=== PATIENT | female | born 1965 | race Caucasian/White ===

== ENCOUNTER 2017-09-22 20:56 | Inpatient (IN) ==
--- NOTE | 2017-09-22 21:49 | Emergency Department Note ---
Disposition Clinical Impression: Multiple drug resistant organism (MDRO) culture positive Acute cystitis Qualifiers: Hematuria presence: without hematuria Qualified Code(s): N30.00 - Acute cystitis without hematuria Disposition: Admitted As Inpatient Condition: Good Referrals: Roxana Hernández CNP [Primary Care Provider] - Forms: ED Satisfaction Letter General Adult HPI - General Chief complaint: ED Recheck/Abnormal Lab/Rx Stated complaint: IV Antibiotics Per Phone Call Time Seen by Provider: 09/22/17 21:40 Source: patient Mode of arrival: ambulatory Limitations: no limitations Nursing Notes Reviewed: Yes Vital Signs Reviewed: Yes - History of Present Illness HPI Narrative: Patient was seen and evaluated by me 2 days ago for evaluation of abdominal pain and left flank pain. Patient symptoms that started while she was on the couch on her iPad (errors in dictation on previous report). The patient underwent a investigation which included blood work as well as a CT scan. Urine was concerning for UTI and CAT scan was concerning for cystitis area the patient was placed on antibiotics and sent home. Urine culture has now grown multiresistant organism. Patient will be placed on antibiotics and admitted to the hospital. Patient has had multiple antibiotics in the past for an ear infection. Pain Scale: 0 - Related Data Home Medications Medication Instructions Recorded Confirmed Gabapentin [Neurontin] 300 mg PO TID 01/17/15 02/19/17 Glimepiride [Amaryl] 4 mg PO DAILY 01/17/15 02/19/17 Insulin ASPART [NovoLOG] 20 unit SQ TIDWM 01/17/15 02/19/17 Lisinopril [Zestril] 10 mg PO DAILY 01/17/15 02/19/17 SUMAtriptan Succinate [Imitrex] 50 mg PO DAILY PRN 01/17/15 02/19/17 Sertraline [Zoloft] 25 mg PO DAILY 01/17/15 02/19/17 Simvastatin [Zocor] 40 mg PO HS 01/17/15 02/19/17 Previous Rx's Medication Instructions Recorded Insulin Glargine,Hum.rec.anlog 35 unit SQ BID #100 mls 01/18/15 [Lantus Solostar] Amoxicillin/Clavulanate [Augmentin] 875 mg PO BIDWM #20 tablet 02/19/17 Ciprofloxacin [Cipro] 500 mg PO BID #20 tablet 09/20/17 Allergies Allergy/AdvReac Type Severity Reaction Status Date / Time No Known Allergies Allergy Verified 09/22/17 21:00 Review of Systems: CONSTITUTIONAL: Subjective fever No weight loss,chills, weakness or fatigue. HEENT: Eyes: No visual changes. Ears, Nose, Throat: No hearing loss, difficulty talking or unable to swallow. SKIN: No rash or itching. CARDIOVASCULAR: No chest pain, chest pressure or chest discomfort. No palpitations or edema. RESPIRATORY: No shortness of breath, cough or sputum. GASTROINTESTINAL: Abdominal pain No anorexia, nausea, vomiting or diarrhea. GENITOURINARY: Frequency without dysuria or hematuria. NEUROLOGICAL: No headache, dizziness, syncope, paralysis, ataxia, numbness or tingling in the extremities. No change in bowel or bladder control. MUSCULOSKELETAL: No muscle pain, back pain, joint pain or stiffness Past Medical History - Past Medical History Medical history: Reports: diabetes, hyperlipidemia, hypertension Surgical history: Reports: cholecystectomy, sinus surgery, other (lefft ear surgery secondary to infection --left mastoid reconstruction) Psychiatric history: Reports: anxiety, depression PANEL CUTTER history: Reports: no PANEL CUTTER history - Social History Smoking Status: Never smoker Smokeless Tobacco Status: No Alcohol use: Reports: none Drug use: Reports: none Physical Exam General: Well appearing, nontoxic, no acute distress Head: Normocephalic Atraumatic Eyes: PERRL, EOMI ENT: Airway patent, no stridor; poor dentition Neck: supple, no meningismus Chest: Lungs clear to auscultation bilateral Cardiac: Regular rate and rhythm, no murmurs, rubs or gallops Abdomen: soft, tenderness to the left upper quadrant and left lower quadrant abdomen with mild left flank tenderness, nondistended; no guarding, rebound, or tenderness to percussion Skin: No rash, normal skin tone Neuro: Alert and Oriented to person, place, and time; No focal deficit Course - Reevaluation(s) Reevaluation #1: Patient with multi resistant acute cystitis. Patient placed on Zosyn which she is sensitive to. Patient will be admitted to the hospitalist service. - Consultations Consultation #1: Discussed with hospitalist. Patient accepted for admission. Vital Signs Temperature 99.3 F 09/22/17 21:00 Pulse Rate 100 07/03/18 21:00 Respiratory Rate 16 09/22/17 21:00 Blood Pressure 161/94 09/22/17 21:00 O2 Sat by Pulse Oximetry 94 09/22/17 21:00 Temperature 99.3 F 09/22/17 21:00 Pulse Rate 100 09/22/17 21:00 Respiratory Rate 16 09/22/17 21:00 Blood Pressure 161/94 09/22/17 21:00 O2 Sat by Pulse Oximetry 94 09/22/17 21:00 Oxygen Delivery Oxygen Delivery Room Air
[2017-09-22] MEDS ORDERED: Piperacillin/Tazobactam 3.375 GM in 0.9 % Sodium Chloride Mini Bag 100 ML IVPB ONE (21:58)
--- NOTE | 2017-09-23 01:31 | Internal Med History&Physical ---
Date of Encounter: 09/23/17 Time of Encounter: 01:28 Internal Medicine - H&P: HPI Chief complaint: UTI Admitted From: Home Plans for Post Hospital Care: Home History of present illness: Ms. Herring is a 52 year old female Patient with history of diabetes mellitus, hypertension, hyperlipidemia, got admitted for the treatment of multi drug resistant UTI with IV antibiotic. Patient was discharged on oral antibiotics Cipro and amoxicillin 2 days before with the concern of a TIA in The scan was concerning for cystitis after getting evaluated in the ER. Patient continued to have symptom. Patient denies fever nausea vomiting chest pain constipation diarrhea headache dizziness. She does complain of chills, dysuria, increased urinary frequency. Past Med Surg Social Fam HX - Past Medical History Medical history: diabetes, hyperlipidemia, hypertension Psychiatric history: anxiety, depression - Past Surgical History Surgical History: , cholecystectomy, sinus surgery, other Additional surgical history: EAR SURGERY, LT - Social History Smoking Status: Never smoker Smokeless Tobacco Status: No Alcohol use: none Drug use: none - Family History Mother Hx Family Cardiac Disorders: Yes ([place]) Internal Medicine - H&P: Meds Insulin ASPART [NovoLOG] 20 unit SQ TIDWM 01/17/15 [History] SUMAtriptan Succinate [Imitrex] 50 mg PO DAILY PRN 01/17/15 [History] Insulin Glargine,Hum.rec.anlog [Lantus Solostar] 35 unit SQ BID #100 mls [Rx] Gabapentin [Neurontin] 300 mg PO TID 09/22/17 [History] Glimepiride [Amaryl] 4 mg PO DAILY 09/22/17 [History] Lisinopril [Zestril] 10 mg PO DAILY 09/22/17 [History] Sertraline [Zoloft] 50 mg PO DAILY 09/22/17 [History] Simvastatin [Zocor] 40 mg PO HS 09/22/17 [History] 3 Allergy/AdvReac Type Severity Reaction Status Date / Time No Known Allergies Allergy Verified 09/22/17 21:00 All Systems PM: A 10-system review of systems was performed and is negative for pertinent findings except as documented above in the HPI. - Constitutional Vitals: Temp Pulse Resp BP Pulse Ox 98.2 F 91 17 158/85 97 09/22/17 23:53 09/22/17 23:53 09/22/17 23:53 09/22/17 23:53 09/22/17 23:53 Exam: General appearance: No acute distress, A&O X 3, obese Head exam: Atraumatic Eye exam: EOMI, PERRLA ENT exam: Moist oral mucosa Neck nontender, supple Respiratory exam: Clear to auscultation bilaterally Cardiovascular exam: Regular rate and rhythm, no systolic murmur Abdominal exam: Soft, mildly tender in left flank and abdomen, nondistended, positive bowel sounds Extremities exam: No calf tenderness, no pedal edema Present: Skin-no rash, warm, dry, intact Neurological exam: Alert, awake, oriented 3, CN II-XII intact, no focal deficits. No facial droop. Normal speech. Motor 5 x 5 in all 4 extremities, Normal gait. - Assessment and plan (1) Acute cystitis Current Visit: Yes Status: Acute Assessment and plan: With multi drug resistant organism Proteus mirabilis sensitive to ertapenem Zosyn. CT abdomen was done suggestive of acute cystitis but no obstructive uropathy. Leukocytosis. Zosyn was started in the ER. May need to consider urology consultation in the morning as per attending physician decision. Pain management by IV Tylenol . Qualifiers: Hematuria presence: without hematuria Qualified Code(s): N30.00 - Acute cystitis without hematuria (2) Diabetes mellitus Current Visit: Yes Status: Acute Assessment and plan: Accu-Chek, continue home dose long-acting insulin, sliding scale coverage, diabetic diet Qualifiers: Diabetes mellitus type: type 2 Diabetes mellitus custodial insulin use: with buttermilk drier operator use Qualified Code(s): E11.9 - Type 2 diabetes mellitus without complications; Z79.4 - intermodal owner operator truck driver (current) use of insulin (3) GERD (gastroesophageal reflux disease) Current Visit: No Status: Acute Assessment and plan: Continue PPI Qualifiers: Esophagitis presence: esophagitis presence not specified Qualified Code(s) : K21.9 - Gastro-esophageal reflux disease without esophagitis (4) HLD (hyperlipidemia) Current Visit: No Status: Acute Assessment and plan: Continue home medicine Qualifiers: Hyperlipidemia type: unspecified Qualified Code(s): E78.5 - Hyperlipidemia , unspecified (5) HTN (hypertension) Current Visit: No Status: Acute Assessment and plan: Slight elevated could be due to pain. Pain control. Continue lisinopril hydralazine when necessary Qualifiers: Hypertension type: essential hypertension Qualified Code(s): I10 - Essential (primary) hypertension (6) DVT prophylaxis Current Visit: Yes Status: Acute Assessment and plan: SCDs - Time Spent With Patient Total time spent is greater than 50% in coordination of care (as documented) at patient's floor/unit and/or counseling patient: 25 - 35 minutes
[2017-09-23] MEDS ORDERED: Naloxone 0.4 MG/ML INJ IVP PRN (01:37)
[2017-09-23] MEDS ORDERED: SUMAtriptan succinate 50 MG TABLET PO PRN (01:39)
[2017-09-23] MEDS ORDERED: D5% in Water 1,000 ML IVC PRN (01:40)
[2017-09-23] MEDS ORDERED: Dextrose Gel 15 GM/37.5 ML TUBE PO PRN ×2 (01:40)
[2017-09-23] MEDS ORDERED: *HR* Dextrose 50 % in Water (Syg) 50 ML SYRINGE IVP PRN (01:40)
[2017-09-23] MEDS ORDERED: Ondansetron 4 MG/2 ML VIAL IVP PRN (01:45)
[2017-09-23 02:07] LABS: Basophils # 0.1 K/mcL (0.0-0.2); Basophils % 0.6 %; Eosinophils # 0.2 K/mcL (0.0-0.6); Eosinophils % 1.7 %; Hematocrit 42.6 % (35.3-44.9); Hemoglobin 13.8 g/dL (11.5-15.4); Immature Granulocytes % 0.6 % (0-4); Lymphocytes # 3.3 K/mcL (0.6-4.6); Lymphocytes % 26.2 %; Mean Corpuscular HGB Conc 32.4 g/dL (31.6-35.5); Mean Corpuscular Hemoglobin 27.6 pg (28.0-33.3); Mean Corpuscular Volume 85.2 fL (83.0-100.0); Mean Platelet Volume 9.6 fL (9.4-12.4); Monocytes # 0.7 K/mcL (0.0-1.3); Monocytes % 5.3 %; Neutrophils # 8.3 K/mcL (1.6-8.9); Platelet Count 438 K/mcL (140-400); Red Cell Distribution Width 14.6 % (11.5-14.5); Segmented Neutrophils % 65.6 %
[2017-09-23] MEDS: 0.9 % Sodium Chloride 1,000 ML IVC SCH ×2 (02:22→14:36)
[2017-09-23 02:31] LABS: BUN/Creatinine Ratio 13 (6-26); Blood Urea Nitrogen 12 mg/dL (6-20); Calcium 9.5 mg/dL (8.6-10.3); Carbon Dioxide 27 mEq/L (23-29); Chloride 97 mEq/L (98-107); Glucose 321 mg/dL (70-105); Osmolality,Calculated 290 (280-300); Potassium 4.2 mEq/L (3.5-5.1); Sodium 134 mEq/L (136-145); eGFR For African Americans > 60 (> 60); eGFR For Non-African Americans > 60 (> 60)
[2017-09-23 02:44] LABS: Amylase 10 Units/L (29-103); Lipase 10 Units/L (11-82)
[2017-09-23] MEDS: Acetaminophen IV 1,000 MG/100 ML INFUS..BTL IVPB SCH ×3 (05:00→18:36)
[2017-09-23] MEDS: Pantoprazole 40 MG VIAL IVP SCH (05:00)
[2017-09-23] MEDS ORDERED: Insulin LISPRO 300 UNITS/3 ML VIAL SQ SCH (08:00)
[2017-09-23] MEDS: Gabapentin 300 MG CAPSULE PO SCH ×3 (08:18→21:11)
[2017-09-23] MEDS: Piperacillin/Tazobactam 3.375 GM in 0.9 % Sodium Chloride Mini Bag 100 ML IVPB SCH ×2 (08:22→18:38)
[2017-09-23] MEDS: Insulin LISPRO 300 UNITS/3 ML VIAL SQ SCH ×3 (08:22→18:37)
[2017-09-23 08:24] LABS: Estimated Average Glucose 212 mg/dl
[2017-09-23] MEDS: Insulin DETEMIR 100 UNIT/ML X5UNITS SQ SCH ×2 (09:14→21:21)
[2017-09-24] MEDS: Piperacillin/Tazobactam 3.375 GM in 0.9 % Sodium Chloride Mini Bag 100 ML IVPB SCH ×3 (00:35→15:05)
[2017-09-24] MEDS: Acetaminophen IV 1,000 MG/100 ML INFUS..BTL IVPB SCH ×3 (01:12→11:55)
[2017-09-24] MEDS: 0.9 % Sodium Chloride 1,000 ML IVC SCH ×2 (04:17→15:30)
[2017-09-24] MEDS: Pantoprazole 40 MG VIAL IVP SCH (05:56)
[2017-09-24] MEDS: Insulin LISPRO 300 UNITS/3 ML VIAL SQ SCH ×3 (07:49→17:24)
[2017-09-24] MEDS: Insulin DETEMIR 100 UNIT/ML X5UNITS SQ SCH ×2 (08:34→21:52)
[2017-09-24] MEDS: Gabapentin 300 MG CAPSULE PO SCH ×3 (08:35→21:52)
[2017-09-24] MEDS ORDERED: Acetaminophen 325 MG TABLET PO PRN (13:32)
--- NOTE | 2017-09-24 15:10 | Infectious Disease Consult ---
Date of Encounter: 09/24/17 Time of Encounter: 15:08 Assessment and Plan (1) Acute cystitis Status: Acute Assessment and plan: Cystitis secondary to multi drug resistant Proteus mirabilis sensitive to ertapenem, tobramycin, Zosyn - Abdomen and pelvis CT performed on 09/20 demonstrated urinary or wall thickening with paravesical fat stranding suggesting cystitis - No obstructive uropathy - Zosyn was started in the ER - Recommend fosfomycin 1 packet q48 hours x 3 Qualifiers: Hematuria presence: without hematuria Qualified Code(s): N30.00 - Acute cystitis without hematuria (2) Diabetes mellitus Status: Acute Assessment and plan: Hemoglobin A1c is 9.0 - presented with an elevated glucose at 321 - Per primary team; Accu-Chek, sliding scale insulin, diabetic diet Qualifiers: Diabetes mellitus type: type 2 Diabetes mellitus assisted insulin use: with adult education manager use Diabetes mellitus complication status: without complication Qualified Code(s): E11.9 - Type 2 diabetes mellitus without complications; Z79.4 - buttermilk drier operator (current) use of insulin (3) HTN (hypertension) Status: Acute Assessment and plan: - Management per primary team Qualifiers: Hypertension type: essential hypertension Qualified Code(s): I10 - Essential (primary) hypertension (4) Poor dentition Status: Acute (5) Morbid obesity with BMI of 50.0-59.9, adult Status: Acute Infectious Disease HPI - Data of Consult Consult date: 09/24/17 Requesting Physician: Paul Mcgrath Primary Care Provider: Roxana Hernández CNP - Consult Narrative Reason for consult: MDR Proteus in urine History of present illness: Patient is a 52-year-old female who initially presented to the emergency department on 09/20/17 with a chief complaint of abdominal pain and left flank pain. We were consulted on 09/24/17 for multidrug resistant Proteus in the urine. Patient has a known past medical history of diabetes, hypertension, hyperlipidemia. Patient initially presented to the hospital on 09/20/17 with a chief complaint of abdominal pain and left flank pain. Patient reported that these symptoms started 2 days prior. No exacerbating or relieving factors. Patient underwent laboratory analysis and CT scan. Patient had an elevated white count at 14.6 with left shift. CAT scan showed cystitis. Urinalysis demonstrated UTI. She was given ciprofloxacin 500 mg in the emergency department. At her initial visit the ER, patient requested to go home. She was discharged in stable condition. Patient was told to come back to the ER after her urine culture grew multidrug resistant Proteus. Upon presentation on 09/24/17, patients vital signs were as follows: Temperature 99.3, pulse 100, respiratory rate 16, blood pressure 161/94, O2 saturation 94. Laboratory analysis demonstrated elevated white count of 12.6. Glucose was elevated at 321. Hemoglobin A1c is 9.0. She has been started on Zosyn. Patient seen and examined at bedside; reports that she is feeling better, and states that she wants to go home. Denies fever, chills, nausea, vomiting. No complaints at this time. CC: Paul Mcgrath Past Med Surg Social Fam HX - Past Medical History Medical history: diabetes, hyperlipidemia, hypertension Psychiatric history: anxiety, depression - Past Surgical History Surgical History: , cholecystectomy, sinus surgery, other Additional surgical history: EAR SURGERY, LT - Social History Smoking Status: Never smoker Smokeless Tobacco Status: No Alcohol use: none Drug use: none - Family History Mother Hx Family Cardiac Disorders: Yes ([place]) Infectious Disease-CN:Meds Insulin ASPART [NovoLOG] 20 unit SQ TIDWM 01/17/15 [History] SUMAtriptan Succinate [Imitrex] 50 mg PO DAILY PRN 01/17/15 [History] Insulin Glargine,Hum.rec.anlog [Lantus Solostar] 35 unit SQ BID #100 mls [Rx] Gabapentin [Neurontin] 300 mg PO TID 09/22/17 [History] Glimepiride [Amaryl] 4 mg PO DAILY 09/22/17 [History] Lisinopril [Zestril] 10 mg PO DAILY 09/22/17 [History] Sertraline [Zoloft] 50 mg PO DAILY 09/22/17 [History] Simvastatin [Zocor] 40 mg PO HS 09/22/17 [History] 3 Allergy/AdvReac Type Severity Reaction Status Date / Time No Known Allergies Allergy Verified 09/22/17 21:00 - Constitutional Constitutional: Absent: chills, fatigue, fever(s), malaise, weakness - Cardiovascular Cardiovascular: Absent: chest pain - Gastrointestinal Gastrointestinal: Absent: abdominal pain, constipation, diarrhea, nausea, vomiting - Genitourinary Genitourinary: Present: as per HPI - Musculoskeletal Musculoskeletal: Present: as per HPI - Neurological Neurological: Absent: abnormal gait, abnormal speech, headache(s) - Endocrine Endocrine: Present: as per HPI Exam - Constitutional Vitals: Temp Pulse Resp BP Pulse Ox 97.5 F L 93 16 129/84 96 09/24/17 10:10 09/24/17 10:10 09/24/17 10:10 09/24/17 10:10 09/24/17 10:10 General appearance: no acute distress - Head Head exam: Present: atraumatic, normal inspection, normocephalic - Respiratory Respiratory exam: Present: CTAB. Absent: prolonged expiratory phase, rales, respiratory distress, wheezes, tachypnea - Cardiovascular Cardiovascular exam: Present: RRR, +S1, +S2. Absent: bradycardia, tachycardia - GI/Abdominal GI/Abdominal exam: Present: soft. Absent: distended, tenderness Infectious Disease CN: Results - Labs CBC & Chem 7: 09/23/17 01:50 09/23/17 01:50 - VTE Reasons for not Prescribing Prophylaxis: Treatment not Indicated - Low risk for VTE Consult Discharge Plan - Plan Referrals: Roxana Hernández, FUEL MANAGEMENT HANDLER [Primary Care Provider] - - Attending Attestation I examined this patient and my medical decision-making was reviewed with the Resident Physician. I agree with the documented findings, disposition and treatment plan as described except to the extent set forth below. This is an addendum to original report dictated by resident physician. Please refer to resident note for full detail. Patient 52 year-old woman with medical history mentioned below who presented to [place] with abdominal pain, suprapubic pain and left flank pain. Patient apparently had no fevers no chills prior to coming. Patient was evaluated they did a CT abdomen pelvis which showed cystitis. Patient also was noted to have leukocytosis. Urine culture were obtained and it grew multidrug resistant Proteus mirabilis (S: zosyn, ertapenem tobramycin) currently patient has been on Zosyn. She states that she feels better. She is very eager to go home. is at bedside. Multidrug resistant UTI. Patient needs to be in contact isolation. Currently on Zosyn which should work fine. But for convenience purposes it is every 8 hours or every 6 hours treatment we will probably switch it to ertapenem IV. Patient will need a power glide placed. Duration of treatment is probably 7 days. I also give the patient option of trying fosfomycin packets 1 packet every 48 hours 3 and she wanted to try that before going to the IV route. I think it is reasonable approach. Patient had uncomplicated cystitis with no real other complaints. I wrote the prescriptions for her. I even called the pharmacy and it will milligrams daily and they cannot order and it cost $280 for 3 packets.
--- NOTE | 2017-09-24 18:03 | Internal Med Progress Note ---
Date of Encounter: 09/24/17 Time of Encounter: 18:03 - Assessment and plan (1) Acute cystitis Current Visit: Yes Status: Acute Qualifiers: Hematuria presence: without hematuria Qualified Code(s): N30.00 - Acute cystitis without hematuria (2) Multiple drug resistant organism (MDRO) culture positive Current Visit: Yes Status: Acute (3) Type 2 diabetes mellitus Current Visit: Yes Status: Acute Qualifiers: Diabetes mellitus intermodal customer service insulin use: unspecified prison insulin use status Diabetes mellitus complication status: without complication Qualified Code(s): E11.9 - Type 2 diabetes mellitus without complications (4) HTN (hypertension) Current Visit: No Status: Acute Qualifiers: Hypertension type: essential hypertension Qualified Code(s): I10 - Essential (primary) hypertension - Time Spent With Patient Total time spent is greater than 50% in coordination of care (as documented) at patient's floor/unit and/or counseling patient: 25 - 35 minutes - Subjective Interval history: .. The patient feels good. She denies having urinary symptoms. She was recently treated here for acute cystitis. After sending her home we got the results of her urine culture. It shows multidrug resistant Proteus mirabilis. This is why she is readmitted. We will treat her with IV Zosyn. Denies chest pain. Denies difficulty breathing, coughing and wheezing. OBJECTIVE: .. Skin: Free of rash and discoloration ENMT: Oral/pharyngeal mucosa is normal in appearance. Eyes: Sclera is white. There is no discharge from eyes. Respiratory: Normal breath sounds; no crackles or wheezes. CV: Heart is regular; no gallop or murmur. GI: Abdomen is soft and not tender. There is no palpable mass or visceromegaly. Neuro: There is no focal deficits. ASSESSMENT AND PLAN: .. Acute cystitis/multidrug-resistant Proteus mirabilis. Will continue Zosyn. Awaiting infectious diseases consult. Type 2 diabetes mellitus. Seems to be out of control. We will keep her on Levemir and when necessary Humalog. She was taking Lantus and when necessary NovoLog at home. Hypertension. Under control. We will continue lisinopril. - Constitutional Vitals: Temp Pulse Resp BP Pulse Ox 97.5 F L 93 16 129/84 96 09/24/17 10:10 09/24/17 10:10 09/24/17 10:10 09/24/17 10:10 09/24/17 10:10 Internal Medicine: Result - Labs CBC & Chem 7: 09/23/17 01:50 09/23/17 01:50 - VTE Reasons for not Prescribing Prophylaxis: Treatment not Indicated - Low risk for VTE Consult Discharge Plan - Plan Referrals: Roxana Hernández, PETER [Primary Care Provider] -
[2017-09-25] MEDS: Piperacillin/Tazobactam 3.375 GM in 0.9 % Sodium Chloride Mini Bag 100 ML IVPB SCH ×2 (00:31→08:41)
[2017-09-25 01:58] LABS: Basophils # 0.1 K/mcL (0.0-0.2); Basophils % 0.7 %; Eosinophils # 0.4 K/mcL (0.0-0.6); Eosinophils % 3.6 %; Hematocrit 38.5 % (35.3-44.9); Immature Granulocytes % 0.4 % (0-4); Lymphocytes # 2.4 K/mcL (0.6-4.6); Lymphocytes % 24.6 %; Mean Corpuscular HGB Conc 31.4 g/dL (31.6-35.5); Mean Corpuscular Hemoglobin 27.3 pg (28.0-33.3); Mean Corpuscular Volume 86.7 fL (83.0-100.0); Mean Platelet Volume 9.5 fL (9.4-12.4); Monocytes # 0.4 K/mcL (0.0-1.3); Monocytes % 4.5 %; Neutrophils # 6.5 K/mcL (1.6-8.9); Platelet Count 391 K/mcL (140-400); Red Blood Count 4.44 M/mcL (3.82-4.97); Red Cell Distribution Width 14.8 % (11.5-14.5); Segmented Neutrophils % 66.2 %
[2017-09-25 02:01] LABS: Hemoglobin 12.1 g/dL (11.5-15.4)
[2017-09-25 02:16] LABS: BUN/Creatinine Ratio 13 (6-26); Blood Urea Nitrogen 12 mg/dL (6-20); Calcium 8.6 mg/dL (8.6-10.3); Carbon Dioxide 26 mEq/L (23-29); Chloride 105 mEq/L (98-107); Glucose 369 mg/dL (70-105); Osmolality,Calculated 301 (280-300); Potassium 4.3 mEq/L (3.5-5.1); Sodium 138 mEq/L (136-145); eGFR For African Americans > 60 (> 60); eGFR For Non-African Americans > 60 (> 60)
[2017-09-25] MEDS: 0.9 % Sodium Chloride 1,000 ML IVC SCH (06:45)
[2017-09-25] MEDS: Insulin LISPRO 300 UNITS/3 ML VIAL SQ SCH ×2 (08:43→12:46)
--- NOTE | 2017-09-25 10:21 | Infectious Disease Progress No ---
Date of Encounter: 09/25/17 Time of Encounter: 10:30 - Assessment and Plan (1) Acute cystitis Status: Acute Cystitis secondary to multi drug resistant Proteus mirabilis sensitive to ertapenem, tobramycin, Zosyn - Abdomen and pelvis CT performed on 09/20 demonstrated urinary or wall thickening with paravesical fat stranding suggesting cystitis - No obstructive uropathy - Zosyn was started in the ER - Initial recommendation was fosfomycin 1 packet q48 hours x 3; this formulation is too expensive for patient - Will likely need IV ertapenem Qualifiers: Hematuria presence: without hematuria Qualified Code(s): N30.00 - Acute cystitis without hematuria (2) Diabetes mellitus Status: Acute Hemoglobin A1c is 9.0 - Presented with an elevated glucose at 321 - Per primary team; Accu-Chek, sliding scale insulin, diabetic diet Qualifiers: Diabetes mellitus type: type 2 Diabetes mellitus superintendent container terminal insulin use: with superintendent container terminal use Diabetes mellitus complication status: without complication Qualified Code(s): E11.9 - Type 2 diabetes mellitus without complications; Z79.4 - terminal system operator (current) use of insulin (3) HTN (hypertension) Status: Chronic - Management per primary team Qualifiers: Hypertension type: essential hypertension Qualified Code(s): I10 - Essential (primary) hypertension - Subjective Interval history: [facility]. States that she is feeling well and that she wants to go home. Denies any fever, chills, nausea, vomiting , abdominal pain, frequency, urgency, hematuria, or suprapubic pain. She has no complaints at this time. Infect Dis PN-Objective Data - Labs CBC & Chem 7: 09/25/17 01:30 09/25/17 01:30 Labs: Laboratory Results - last 24 hr 09/24/17 09/24/17 09/24/17 07:10 11:15 15:54 WBC RBC Hgb Hct MCV MCH MCHC RDW Plt Count MPV Immature Gran % Seg Neutrophils % Lymphocytes % Monocytes % Eosinophils % Basophils % Neutrophils # Lymphocytes # Monocytes # Eosinophils # Basophils # Sodium Potassium Chloride Carbon Dioxide BUN Creatinine Est GFR ( Amer) Est GFR (Non-Af Amer) BUN/Creatinine Ratio Glucose POC Glucose 79 194 H 257 H Calculated Osmolality Calcium 09/24/17 09/25/17 09/25/17 20:42 01:30 01:30 WBC 9.8 RBC 4.44 Hgb 12.1 D Hct 38.5 MCV 86.7 MCH 27.3 L MCHC 31.4 L RDW 14.8 H Plt Count 391 MPV 9.5 Immature Gran % 0.4 Seg Neutrophils % 66.2 Lymphocytes % 24.6 Monocytes % 4.5 Eosinophils % 3.6 Basophils % 0.7 Neutrophils # 6.5 Lymphocytes # 2.4 Monocytes # 0.4 Eosinophils # 0.4 Basophils # 0.1 Sodium 138 Potassium 4.3 Chloride 105 Carbon Dioxide 26 BUN 12 Creatinine 0.92 Est GFR ( Amer) > 60 Est GFR (Non-Af Amer) > 60 BUN/Creatinine Ratio 13 Glucose 369 H POC Glucose 289 H Calculated Osmolality 301 H Calcium 8.6 Exam - Constitutional Vitals: Temp Pulse Resp BP Pulse Ox 97.6 F 73 12 164/97 94 09/25/17 06:53 09/25/17 06:53 09/25/17 06:53 09/25/17 06:53 09/25/17 06:53 General appearance: no acute distress - Respiratory Respiratory exam: Present: CTAB. Absent: decreased breath sounds, respiratory distress, rhonchi, stridor, tachypnea - Cardiovascular Cardiovascular exam: Present: RRR, +S1, +S2. Absent: bradycardia, systolic murmur, tachycardia - GI/Abdominal GI/Abdominal exam: Present: normal bowel sounds, soft. Absent: tenderness - Psychiatric Psychiatric exam: Present: normal affect, normal mood - Skin Skin exam: Present: dry, intact - VTE Reasons for not Prescribing Prophylaxis: Treatment not Indicated - Low risk for VTE Consult Discharge Plan - Plan Referrals: Roxana Hernández, PETER [Primary Care Provider] - 10/01/17 1:20 pm Prescriptions: Ertapenem [INVanz] 1,000 mg IVPB DAILY #7 vial - Attending Attestation I examined this patient and my medical decision-making was reviewed with the Resident Physician. I agree with the documented findings, disposition and treatment plan as described except to the extent set forth below.
[2017-09-25] MEDS: Insulin DETEMIR 100 UNIT/ML X5UNITS SQ SCH (10:39)
[2017-09-25] MEDS: Gabapentin 300 MG CAPSULE PO SCH ×2 (10:39→18:01)
--- NOTE | 2017-09-25 14:08 | Discharge Summary ---
Date of Encounter: 09/25/17 Time of Encounter: 14:06 - Discharge Diagnosis (1) Acute cystitis Priority: Primary Status: Acute Qualifiers: Hematuria presence: without hematuria Qualified Code(s): N30.00 - Acute cystitis without hematuria (2) Multiple drug resistant organism (MDRO) culture positive Priority: Primary Status: Acute (3) Type 2 diabetes mellitus Priority: Secondary Status: Chronic Qualifiers: Diabetes mellitus intermediate insulin use: unspecified intermediate insulin use status Diabetes mellitus complication status: without complication Qualified Code(s): E11.9 - Type 2 diabetes mellitus without complications (4) HTN (hypertension) Priority: Secondary Status: Chronic Qualifiers: Hypertension type: essential hypertension Qualified Code(s): I10 - Essential (primary) hypertension Hospital course: Ms. eHrring is a 52 year old female. This patient was discharged, only 2 days before this admission. She was treated for UTI; sent home on Cipro/amoxicillin. Somebody called her at home on the day of admission asking her to calm to the emergency room for readmission. Urine culture done 2 days earlier showed multidrug resistant Proteus mirabilis. The patient basically did not have any symptoms when arriving to the hospital. She was previously treated for cystitis. We started her on IV ertapenem. Consultation was obtained from infectious diseases. They wanted the patient to take fosfomycinwe could not find any pharmacy carrying this medication. Eventually we discharge this patient on IV ertapenem. She will be taking this antibiotic at infusion center for the next 7 days after the discharge. Condition at discharge: The patient feels good. Denies abdominal pain, nausea and vomiting. She has no urinary symptoms. Denies chest pain. Denies difficulty breathing. She is discharged home. See discharge orders. Discharge discussed with: patient, family, case management, organizational development consultant - Time Spent with Patient Total time spent providing and/or coordinating discharge services: Greater than 30 minutes (40 minutes) - Discharge Medications Prescriptions: Ertapenem [INVanz] 1,000 mg IVPB DAILY #7 vial Home Medications: Insulin ASPART [NovoLOG] 20 unit SQ TIDWM 01/17/15 [History] SUMAtriptan Succinate [Imitrex] 50 mg PO DAILY PRN 01/17/15 [History] Insulin Glargine,Hum.rec.anlog [Lantus Solostar] 35 unit SQ BID #100 mls [Rx] Gabapentin [Neurontin] 300 mg PO TID 09/22/17 [History] Glimepiride [Amaryl] 4 mg PO DAILY 09/22/17 [History] Lisinopril [Zestril] 10 mg PO DAILY 09/22/17 [History] Sertraline [Zoloft] 50 mg PO DAILY 09/22/17 [History] Simvastatin [Zocor] 40 mg PO HS 09/22/17 [History] Ertapenem [INVanz] 1,000 mg IVPB DAILY #7 vial 09/25/17 [Rx] Allergies/Adverse Reactions: 3 Allergy/AdvReac Type Severity Reaction Status Date / Time No Known Allergies Allergy Verified 09/22/17 21:00 Date of admission: 09/23/17 17:06 Primary care physician: Roxana Hernández CNP Consults: 09/24/17 13:34 Consult to Infectious Diseases [CONS] Routine Consulting Provider: Infectious Disease Poly Reason for Consult: MDR Proteus in urine Call Completed: No 09/25/17 14:00 Consult to Invasive Line Access Team [CONS] Routine Reason for Consult: home atb Line Type: EPIV Discharging clinician: Paul Mcgrath Anticipated date of discharge: 09/25/17 - Constitutional Vitals: Temp Pulse Resp BP Pulse Ox 97.7 F 75 12 158/87 97 09/25/17 10:58 09/25/17 10:58 09/25/17 10:58 09/25/17 10:58 09/25/17 10:58 General appearance: Present: A&O X 3, no acute distress, answers questions appropriately - Respiratory Respiratory exam: Present: CTAB. Absent: accessory muscle use, rales, rhonchi, wheezes - Cardiovascular Cardiovascular exam: Present: RRR, +S1, +S2. Absent: diastolic murmur, gallop, rubs, systolic murmur - GI/Abdominal GI/Abdominal exam: Present: normal bowel sounds, soft, no peritoneal signs. Absent: distended, tenderness - Patient Status Disposition: Home, Self-Care Condition: Good Overall status at discharge: patient is back to baseline - Discharge Instructions Follow Up With: Roxana Hernández CNP [Primary Care Provider] - 10/01/17 1:20 pm - Diet and Activity Activity: resume usual activities as tolerated - VTE Reasons for not Prescribing Prophylaxis: Treatment not Indicated - Low risk for VTE Deep Vein Thrombosis/Pulmonary Embolism Present on Admission: No
[2017-09-25 16:20] VITALS: BP 162/91
== END 2017-09-25 17:57 | disposition home or self-care (01) | DRG 463 ==
LOC: EMEROO 20:56 → 3ANU 20:56 → SUATTDRO 22:50 → 3ANU 23:33
PROVIDERS: ADMIT Internal Medicine; ATTEND Internal Medicine

== ENCOUNTER 2021-03-12 00:58 | Inpatient (IN) ==
[2021-03-12] MEDS ORDERED: Perflutren Lipid Microsphere 1.3 ML in 0.9 % Sodium Chloride 8.7 ML IVP PRN (03:19)
[2021-03-12] MEDS ORDERED: *HR* Heparin 5,000 UNIT/ML VIAL IVP PRN ×2 (03:24)
[2021-03-12] MEDS ORDERED: *HR* Dextrose 50 % in Water (Syg) 50 ML SYRINGE IVP PRN (03:46)
[2021-03-12] MEDS ORDERED: Dextrose Gel 15 GM/37.5 ML TUBE PO PRN ×2 (03:46)
[2021-03-12] MEDS ORDERED: D5% in Water 1,000 ML IVC PRN (03:46)
[2021-03-12] MEDS ORDERED: Naloxone 0.4 MG/ML INJ IVP PRN (03:48)
[2021-03-12] MEDS ORDERED: Ondansetron 4 MG/2 ML VIAL IVP PRN (03:48)
[2021-03-12] MEDS: Heparin 25,000 UNIT/250 ML 25,000 UNIT/250 ML IV.SOLN IVC SCH ×2 (03:51→20:58)
[2021-03-12] MEDS ORDERED: Prochlorperazine 10 MG/2 ML VIAL IVP PRN (04:33)
[2021-03-12] MEDS: Insulin LISPRO 300 UNITS/3 ML VIAL SUBQ SCH ×5 (04:46→20:51)
[2021-03-12] MEDS: Levalbuterol Neb 1.25 MG/3 ML IH SCH ×4 (04:49→20:11)
[2021-03-12] MEDS: Acetaminophen 325 MG TABLET PO PRN (05:01)
[2021-03-12] MEDS: methocarbamoL 750 MG TABLET PO SCH ×3 (05:01→20:49)
[2021-03-12 05:21] LABS: Hematocrit 46.6 % (35.3-44.9); Hemoglobin 14.4 g/dL (11.5-15.4); Mean Corpuscular HGB Conc 30.9 g/dL (31.6-35.5); Mean Corpuscular Hemoglobin 28.9 pg (28.0-33.3); Mean Corpuscular Volume 93.6 fL (83.0-100.0); Mean Platelet Volume 9.6 fL (9.4-12.4); Platelet Count 346 K/mcL (140-400); Red Blood Count 4.98 M/mcL (3.82-4.97); Red Cell Distribution Width 13.9 % (11.5-14.5); White Blood Count 10.9 K/mcL (4.3-11.1)
[2021-03-12 05:31] LABS: INR 1.1; Prothrombin Time 11.8 Seconds (9.4-12.1)
[2021-03-12 05:32] LABS: Calcium 8.8 mg/dL (8.6-10.3); Potassium 4.6 mEq/L (3.5-5.1)
[2021-03-12 05:33] LABS: Heparin anti-factor XA UFH 1.4 IU/mL (0.30-0.70)
[2021-03-12 05:34] LABS: Chol/HDL Ratio 2.8 (0-4.9); Cholesterol 181 mg/dL (< 200); HDL Cholesterol 64 mg/dL (40-59); LDL Cholesterol,Calculated 91 mg/dL (< 100); Magnesium 1.6 mg/dL (1.6-2.6); Triglycerides 131 mg/dL (< 150); Troponin I < 0.03 ng/mL (< 0.04)
[2021-03-12 07:15] LABS: Bilirubin,Urine Negative (Negative); Blood,Urine Negative (Negative); Clarity,Urine Clear (Clear); Color,Urine Colorless (Yellow); Glucose,Urine (UA) >=1000 mg/dL (Normal); Ketones,Urine 20 mg/dL (Negative); Leukocyte Esterase,Urine Negative (Negative); Mucus,Urine Few per lpf (None-Few); Nitrite,Urine Negative (Negative); PH,Urine 5.5 pH Units (5.0-8.0); Protein,Urine Negative (Neg-Trace); Specific Gravity,Urine > 1.030 (1.010-1.025); Squamous Epithelial Cell,Urine Few per hpf (None-Few); Urobilinogen,Urine Normal (Normal); WBC,Urine 0-3 per hpf (0-3)
[2021-03-12 07:37] LABS: Estimated Average Glucose 192 mg/dl; Hemoglobin A1C 8.3 %
[2021-03-12] MEDS: lisinopriL 20 MG TABLET PO SCH (08:06)
[2021-03-12] MEDS: hydroCHLOROthiazide 25 MG TABLET PO SCH (08:07)
[2021-03-12] MEDS: atenoloL 50 MG TABLET PO SCH ×2 (08:07→20:50)
[2021-03-12] MEDS: Gabapentin 300 MG CAPSULE PO SCH ×3 (08:07→20:50)
[2021-03-12] MEDS: amLODIPine 5 MG TABLET PO SCH (08:07)
[2021-03-12] MEDS: Insulin DETEMIR 100 UNIT/ML X5UNITS SUBQ SCH ×2 (08:12→20:50)
[2021-03-12] MEDS ORDERED: amLODIPine 5 MG TABLET PO SCH (09:00)
[2021-03-12] MEDS ORDERED: Azithromycin 500 MG in 0.9 % Sodium Chloride 250 ML IVPB SCH (18:00)
[2021-03-12] MEDS: tiZANidine 4 MG TABLET PO SCH (20:50)
[2021-03-13 02:47] LABS: Hematocrit 44.2 % (35.3-44.9); Hemoglobin 13.3 g/dL (11.5-15.4); Mean Corpuscular HGB Conc 30.1 g/dL (31.6-35.5); Mean Corpuscular Hemoglobin 28.6 pg (28.0-33.3); Mean Corpuscular Volume 95.1 fL (83.0-100.0); Mean Platelet Volume 9.7 fL (9.4-12.4); Platelet Count 342 K/mcL (140-400); Red Blood Count 4.65 M/mcL (3.82-4.97); Red Cell Distribution Width 14.2 % (11.5-14.5); White Blood Count 8.6 K/mcL (4.3-11.1)
[2021-03-13 03:04] LABS: Calcium 9.3 mg/dL (8.6-10.3); Potassium 4.1 mEq/L (3.5-5.1)
[2021-03-13] MEDS: methocarbamoL 750 MG TABLET PO SCH ×3 (04:22→20:34)
[2021-03-13] MEDS: Heparin 25,000 UNIT/250 ML 25,000 UNIT/250 ML IV.SOLN IVC SCH ×2 (07:10→14:20)
[2021-03-13] MEDS: Insulin LISPRO 300 UNITS/3 ML VIAL SUBQ SCH ×4 (09:28→20:35)
[2021-03-13] MEDS: Gabapentin 300 MG CAPSULE PO SCH ×3 (09:46→20:33)
[2021-03-13] MEDS: atenoloL 50 MG TABLET PO SCH ×2 (09:46→20:32)
[2021-03-13] MEDS: Insulin DETEMIR 100 UNIT/ML X5UNITS SUBQ SCH ×2 (09:46→20:38)
[2021-03-13] MEDS: hydroCHLOROthiazide 25 MG TABLET PO SCH (09:46)
[2021-03-13] MEDS: lisinopriL 20 MG TABLET PO SCH (09:46)
[2021-03-13] MEDS: amLODIPine 5 MG TABLET PO SCH (09:46)
[2021-03-13] MEDS ORDERED: GuaiFENesin Liq 200 MG/10 ML UDC PO PRN (09:58)
[2021-03-13] MEDS ORDERED: 0.9 % Sodium Chloride 1,000 ML IVC SCH (17:00)
[2021-03-13] MEDS: *HR* Rivaroxaban 15 MG TABLET PO SCH (17:15)
[2021-03-13] MEDS: Acetaminophen 325 MG TABLET PO PRN (20:33)
[2021-03-13] MEDS: tiZANidine 4 MG TABLET PO SCH (20:34)
[2021-03-14] MEDS: methocarbamoL 750 MG TABLET PO SCH (03:23)
[2021-03-14 05:28] LABS: Calcium 8.8 mg/dL (8.6-10.3); Potassium 4.4 mEq/L (3.5-5.1)
[2021-03-14] MEDS: amLODIPine 5 MG TABLET PO SCH (09:52)
[2021-03-14] MEDS: Gabapentin 300 MG CAPSULE PO SCH (09:52)
[2021-03-14] MEDS: atenoloL 50 MG TABLET PO SCH (09:52)
[2021-03-14] MEDS: hydroCHLOROthiazide 25 MG TABLET PO SCH (09:52)
[2021-03-14] MEDS: lisinopriL 20 MG TABLET PO SCH (09:53)
[2021-03-14] MEDS: *HR* Rivaroxaban 15 MG TABLET PO SCH (09:53)
[2021-03-14] MEDS: Insulin LISPRO 300 UNITS/3 ML VIAL SUBQ SCH (10:03)
[2021-03-14] MEDS: Insulin DETEMIR 100 UNIT/ML X5UNITS SUBQ SCH (10:03)
[2021-03-14 11:21] VITALS: BP 116/69; PULSE 61; TEMP 97.7; O2SAT 96
== END 2021-03-14 13:10 | disposition home or self-care (01) | DRG 134 ==
LOC: 3BNU → SUATTDRO 02:50 → 3BNU 05:10
PROVIDERS: ADMIT Internal Medicine; ATTEND Registered Nurse